=== PATIENT | female | born 1970 | race Caucasian/White ===

== ENCOUNTER 2025-09-18 10:49 | Emergency (ER) | payer MEDICARE, SELFPAY ==
[2025-09-18 10:55] VITALS: BP 161/128; PULSE 105; RESP 17; TEMP 36.6; O2SAT 95; BMI 31.1
--- OUTSIDE RECORDS SUMMARY | 2025-09-18 10:56 | XMS_ITS | Referral Summary ---
Author Organization [employer] ([place], [place], [place], [place], [place]) Address [address] [place] [address] Care Team Providers Care Supervisor Wood Room Name Role Phone Unavailable Primary Care Provider Unavailabl e Social History Tobacco Use Types Packs/Day Years Used Date Smoking Tobacco: Never Assessed Comments Unknown Sex and Gender Information Value Date Recorded Sex Assigned at Not on file Legal Sex Female 12:47 PM CDT Gender Identity Not on file Sexual Orientation Not on file Last Filed Vital Signs Vital Sign Reading Time Taken Comments Blood Pressure - - Pulse - - Temperature - - Respiratory Rate - - Oxygen Saturation - - Inhaled Oxygen Concentration - - Weight 77.6 kg (171 lb) 08/03/2025 12:09 PM CDT Height 157.5 cm (5' 2 ) 08/03/2025 12:09 PM CDT Body Mass Index 31.28 08/03/2025 12:09 PM CDT Plan of Treatment Upcoming Encounters Date Type Department Care Team (Late st Contact Info) Description 11/28/2025 10:00 AM SENIOR PRODUCT MANAGER Appointment [facility] - Non-Invasive Cardiology [address] [place] [phone] Eliceo Enriquez MD [address] [place] [phone] 11/28/2025 11:15 AM SENIOR PRODUCT MANAGER Office Visit [facility] [address] [place] [phone] Eliceo Enriquez MD [address] [place] [address] [phone]
--- OUTSIDE RECORDS SUMMARY | 2025-09-18 10:56 | XMS_ITS | Clinical Summary ---
Author Organization [facility] Address [address] [place] [address] Care Team Providers Care Transport Technician Name Role Phone Phan Palacios MD Primary Care Provider + [phone] Allergies Active Allergy Reactions Criticality Noted Date Comments Penicillins Other (See Comments) Happened when she was a child so doesn't remember reaction Medications albuterol 90 mcg/actuation Inhl inhaler Inhale 2 puffs into the lungs every 6 (six) hours as needed. 2 Active cyclobenzaprine 10 mg Oral tablet Take 2 tablets by mouth at bedtime. 2 Active FARXIGA 10 mg Oral TabIndications:typ e 2 diabetes mellitus Take 10 mg by mouth daily with breakfast. Indications: type 2 diabetes mellitus 2 Active diclofenac sodium 1 % Top Gel Apply 2 g topically 3 (three) times daily as needed (pain). 2 Active LANTUS SOLOSTAR U-100 INSULIN 100 unit/mL (3 mL) SubQ InPn Inject 2,000 Units into the skin daily with breakfast. 2 Active metFORMIN 500 mg Oral tablet Take 1 tablet by mouth 2 (two) times daily with meals. 2 Active naloxone 4 mg/actuation Nasl nasal spray 1 spray. 2 Active ondansetron 8 mg Oral disintegrating tablet Take 1 tablet by mouth as needed for Nausea. Active risperiDONE 2 mg Oral tablet Take 1.5 tablets by mouth at bedtime. 2 Active gabapentin 600 mg Oral tablet Take 1 tablet by mouth 3 (three) times daily. 2 Active HYDROcodone-acetam inophen 7.5-325 mg Oral per tablet Take 1 tablet by mouth 3 (three) times daily. 2 Active dextroamphetamine- amphetamine 20 mg Oral 24 hr capsule Take 1 capsule by mouth every morning at 0600. Active eszopiclone 3 mg Oral Tab Take 1 tablet by mouth at bedtime. 4 Active doxycycline 100 mg Oral capsule Take 1 capsule by mouth 2 (two) times daily. Active nitrofurantoin, macrocrystal-monoh ydrate, 100 mg Oral capsule Take 1 capsule by mouth 2 (two) times daily before breakfast/kieran ch. 4 Active celecoxib 200 mg Oral capsule Take 1 capsule by mouth daily. 4 Active buPROPion 150 mg Oral 24 hr tablet Take 1 tablet by mouth daily. 4 Active Active Problems Patient Care Coordination No te Formatting of this note migh t be different from the original. AED HX KEPPRA, KLONOPIN, GABAPENTIN Problem Noted Date Diagnosed Date COPD with acute exacerbation 05/12/2019 Acute respiratory failure with hypoxia 9 Seizure disorder 10/09/2018 Resolved Problems Problem Noted Date Diagnosed Date Resolved Date Sepsis, due to unspecified o rganism, unspecified whether acute organ dysfunction present 05/28/2022 05/29/2022 Family History Medical History Relation Name Comments Heart disease Father Heart disease Mother Relation Name Status Comments Father Alive Mother Social History Tobacco Use Types Packs/Day Years Used Date Smoking Tobacco: Every Day Cigarettes 1 40 Smokeless Tobacco: Never Tobacco Cessation:Ready to Q uit: Not Asked; Counseling Given: Not Answered Alcohol Use Standard Drinks/Week Comments No 0 (1 standard drink = 0.6 oz pur e alcohol) Comments No Sex and Gender Information Value Date Recorded Sex Assigned at Female 11/25/2023 8:13 AM AIR COMPRESSOR OPERATOR Legal Sex Female 10:31 PM AIR COMPRESSOR OPERATOR Gender Identity Female 11/25/2023 8:13 AM AIR COMPRESSOR OPERATOR Sexual Orientation Straight 11/25/2023 8: 13 AM AIR COMPRESSOR OPERATOR Last Filed Vital Signs Vital Sign Reading Time Taken Comments Blood Pressure 139/84 11/28/2023 12:55 PM AIR COMPRESSOR OPERATOR Pulse 84 11/28/2023 12:55 PM AIR COMPRESSOR OPERATOR Temperature 36.1 C (96.9 F) 11/28/2023 12:55 PM AIR COMPRESSOR OPERATOR Respiratory Rate 17 11/28/2023 12:55 PM AIR COMPRESSOR OPERATOR Oxygen Saturation 94% 11/28/2023 12:55 PM AIR COMPRESSOR OPERATOR Inhaled Oxygen Concentration - - Weight 76.2 kg (168 lb) 11/25/2023 8:41 AM AIR COMPRESSOR OPERATOR Height 157.5 cm (5' 2 ) 11/25/2023 8:41 AM AIR COMPRESSOR OPERATOR Body Mass Index 30.73 11/25/2023 8:41 AM AIR COMPRESSOR OPERATOR Plan of Treatment Upcoming Encounters Date Type Department Care Team (Late st Contact Info) Description 10/11/2025 11:30 AM AIR COMPRESSOR OPERATOR Appointment [facility] [address], [address] [place], [place] [id number] Cassy Martinez MD [address] [place], [place] [id number] [email or web address] Maintenance Due Date Last Done Comments CT Colonography 1969 Colon Cancer Screening 1969 Colonoscopy 1969 Diabetic Eye Exam 1969 Diabetic Foot Exam 1969 FIT 1969 Fecal DNA Test 1969 Fecal Occult Blood Test 1969 HIV Screening 1969 HPV/Cotest 1969 Lipid Screening 1969 Lung Cancer Screening 1969 Sigmoidoscopy 1969 Hepatitis B Vaccines (1 of 3 - 19+ 3-dose series) 1988 Pneumococcal Vaccine 50+ yrs (1 of 2 - PCV) 1988 Cervical Cancer Screening 1990 Pap Smear 1990 Mammogram 2009 Medicare Wellness Initial (G0438) 09/05/2017 Hemoglobin A1C 04/21/2020 10/22/2019, 10/06, 05/13/2019 DTaP,Tdap,and Td Vaccines (2 - Td or Tdap) 06/05/2023 05/08/2023 Shingles Vaccine (2 of 2) 07/03/2023 05/08/2023 Depression Screening 10/06/2024 Diabetes: Urine Protein Screening 10/06/2024 10/27/2019 Glomerular Filtration Rate (GFR) 10/06/2024 03/09/2024, 07/21/2022, 05/29/2022, Additional history exists Tobacco Cessation Intervention 11/04/2024 11/04/2023 COVID-19 Vaccine ( season) 2025 Influenza Vaccine (#1) 2025 4, 08/20/2006, 09/02/2005 Tobacco Use Screening 10/21/2025 10/21/2024 Hepatitis C Screening Completed 07/27/2021 HIB Vaccines Aged Out No longer eligi ble based on patient's age to complete this topic HPV Vaccines Aged Out No longer eligi ble based on patient's age to complete this topic Hepatitis A Vaccines Aged Out No long er eligible based on patient's age to complete this topic Meningococcal ACWY Vaccine Aged Out N o longer eligible based on patient's age to complete this topic RSV Vaccine (under 20 mo) Aged Out No longer eligible based on patient's age to complete this topic Procedures Procedure Name Priority Date/Time Associated Diagnosis Comments COMPREHENSIVE METABOLIC PANEL Routine 03/09/2024 9:40 AM CDT Polycythemia, secondary HEPATITIS PANEL ACUTE Routine 07/27/2021 9:52 AM CDT Abnormal results of liver function studies Wheezing HEMOGLOBIN A1C Routine 05/13/2019 10:15 AM CDT from Last 3 Months or Most Recently Relevant to Health Maintenance Results * (ABNORMAL) Comprehensive metabolic panel (03/09/2024 9:40 AM CDT) [facility] Signature Glucose 107(H) 70 - 105 mg/dL 03/09/2024 10:04 AM CDT [facility] BUN 19(H) 7 - 18 mg/dL 03/09/2024 10:04 AM CDT [facility] Creatinine, Blood 1.17(H) 0.57 - 1.11 mg/dL 03/09/2024 10:04 AM [facility] Sodium 138 136 - 145 mEq/L 03/09/2024 10:04 AM [facility] Potassium 4.1 3.5 - 5.1 mEq/L 03/09/2024 10:04 AM [facility] Chloride 103 98 - 107 mEq/L 03/09/2024 10:04 AM [facility] Carbon Dioxide 23.9 22.0 - 29.0 mEq/L 03/09/2024 10:04 AM [facility] Calcium 9.6 8.4 - 10.2 mg/dL 03/09/2024 10:04 AM [facility] Total Protein 7.4 6.4 - 8.3 g/dL 03/09/2024 10:04 AM [facility] Albumin 4.3 3.5 - 5.2 g/dL 03/09/2024 10:04 AM [facility] AST 16 5 - 34 U/L 03/09/2024 10:04 AM [facility] ALT 19 0 - 55 U/L 03/09/2024 10:04 AM [facility] Alkaline Phosphatase 101 40 - 150 IU/L 03/09/2024 10:04 AM [facility] Bilirubin, Total 0.3 0.2 - 1.2 mg/dL 03/09/2024 10:04 AM [facility] Estimated GFR 56(L) >60 mL/min/1. 73m2 03/09/2024 10:04 AM [facility] Comment: Calculation based on the Chronic Kidney Disease Epidemiology Collaboration (CKD-EPI)equation. The National Kidney Foundation recommends reporting eGFR(GFRC) values above 60 ml/min as >60. An eGFR(GFRC) of >60 ml/min is considered normal or near normal kidney function. Estimated GFR (eGFR or GFRC) values from 61 ml/min to 120 ml/min will also be reported. Anion Gap 11.1 8 - 12 mEq/L 03/09/2024 10:04 AM [facility] Blood LEFT VOCAL CORD STRUCTURE / Unknown Venipuncture / Unknown 03/09/2024 9:40 AM CDT 03/09/2024 9:45 AM CDT Jimmy Ingram MD LAB BLOOD ORDERABLES Final Result Performing Organization Address [facility] Co de Phone Number [facility] [address] [place] [address] * Hepatitis panel (07/27/2021 9:52 AM CDT) Pathologist [facility] Hepatitis B Surface Ag 0.20 0.0 - 0.99 [facility] Interp B Estrella Ag Negative [facility] Hep A IgM 0.11 0.0 - 0.79 [facility] Hepatitis C Ab 0.11 0.0 - 0.79 [facility] Hep C Negative [facility] Hepatitis B Core IgM 0.09 0.0 - 0.79 [facility] HepB Core IgM Negative [facility] Blood 07/27/2021 9:52 AM CDT 07/27/2021 9:55 AM CDT Phan Palacios MD LAB BLOOD ORDERABLES Final R esult Performing Organization Address [facility] de Phone Number [facility] [address] [place] [address], [place] * (ABNORMAL) Hemoglobin A1c (05/13/2019 10:15 AM CDT) Pathologist [facility] Hemoglobin A1C 9.5(H) 4.1 - 5.6 % [facility] Comment: Blood transfusions may impact the HbA1c concentration in the patient sample. NOTE This methodology does not differentiate minor hemoglobin variants that may artificially elevate the HbA1C level in some circumstances. If the HbA1C levels are inconsistent with clinical evidence, additional hemoglobin testing may be needed to confirm the results. PLEASE NOTE NEW REFERENCE RANGE ---- INTERPRETIVE INFORMATION ---- According to the [place] [employer], hemoglobin A1c values of 5.7-6.4 percent indicate an increased risk for developing diabetes mellitus. Hemoglobin A1c values greater than or equal to 6.5 percent are diagnostic of diabetes. The diagnosis of diabetes should be confirmed by repeating the Hb A1c test. Reference: Diabetes Care. Vol. 35. Supplement 1 S64-S71. Oct 2011 Glucose Estimated Average 226 mg/dL [facility] [place] Comment: NOTE The estimated average glucose is calculated using the ADAG (A1c Derived Average Glucose Study) equation: eAG=28.1pV1c-48.7. The relationship between A1c and the average blood glucose levels is shown below. A1c% eAG mg/dl 6 126 6.5 140 7 154 7.5 169 8 183 8.5 197 9 212 9.5 226 10 240 Ref: Diabetes Care, volume 31, number 8, May 2008 Blood specimen (specimen) 05/13/2019 10:15 AM CDT 05/13/2019 10:21 AM CDT us Tyler Davis MD LAB BLOOD ORDERABLES Final Resul t [facility] [address] [place] [address], [facility] from Last 3 Months or Most Recently Relevant to Health Maintenance Insurance [employer] Advance Directives * Full Code (Latest Code Status on File) Date Activated Date Inactivated Comments 05/12/2019 6:18 PM 10/21/2019 5:23 PM Healthcare Agents on File Name Relationship Healthcare Agent Relationship Communication Power Lexx Son Yes - Makes dec isions when patient is unable to Radha Woodward Other Yes - Makes deci sions when patient is unable to Care Teams Transport Technician Relationship Specialty Start Date End Date Phan Palacios MD PCP - General Internal Medicine 08/07/18
--- OUTSIDE RECORDS SUMMARY | 2025-09-18 10:56 | XMS_ITS | Clinical Summary ---
Author Organization [employer] ([place], [place], [place], [place], [place]) Address [address] [place] [id number] Care Team Providers Care Envelope Machine Operator Name Role Phone Unavailable Primary Care Provider [...] st Contact Info) Description 11/28/2025 10:00 AM BOILING OFF WINDER Appointment [facility] - Non-Invasive Cardiology [address] [place] [address] [phone] Eliceo Enriquez MD [address] [place] [phone] 11/28/2025 11:15 AM BOILING OFF WINDER Office Visit [facility] [address] [place] [address] [phone] Eliceo Enriquez MD [address] [place] [phone] Health Maintenance Due Date Last Done Comments CT Colonography 1969 Colonoscopy 1969 Colorectal Cancer Screening 1969 FOBT/FIT 1969 Fit-DNA (Cologuard) 1969 Sigmoidoscopy 1969 Depression Screening (12+) 1981 Tobacco Cessation Counseling and Screening (12+) 04/13 HIV Screening 1984 Hepatitis C Screening 1987 DTAP/TDAP/TD VACCINES (1 - Tdap) 1988 Pap Smear 1990 Breast Cancer Screening 2009 Lipid Panel 2014 Pneumococcal 50+ years (1 of 1 - PCV) 2019 Shingles Vaccine (Zoster) (1 of 2) 2019 COVID-19 VACCINE (1 - season) 2025 Influenza Vaccine (#1) 2025
--- NOTE | 2025-09-18 11:22 | ED_ITS ---
HPI - Skin/Abscess/Foreign Bdy General: Chief complaint: Skin/Abscess/Foreign Body Stated complaint: blisters on L foot Time Seen by Provider: 09/18/25 10:53 Source: patient Mode of arrival: ambulatory Limitations: no limitations History of Present Illness: Patient is a 55-year-old female presents emergency department complaining of blisters to left foot. She is diabetic states that she has a molder wax ball in [place] but currently is staying here in [place] for the month for family reasons. States that in the past she has had these blisters lanced with her foot doctor, she can feel a blister coming on but has not reported any redness or other concerning signs of a spreading infection. Just reports pain, she wears a boot at all times. No fevers or nausea/vomiting. She notes that her foot is throbbing and she is concerned that they are infected she called her doctor was told to come to the ER for evaluation. Vitals are stable at this time. She chronically takes Burns for pain. MD complaint: other (Blisters left foot) Severity: similar to previous episodes Context: other (Diabetic) Associated symptoms: Deny chills, fever(s), nausea or vomiting Related Data Previous Rx's ?Medication ?Instructions ?Recorded cephalexin 500 mg capsule 500 mg PO Q6H 5 days #20 cap s 09/18/25 sulfamethoxazole 800 1 tab PO BID 7 days #14 tabs 09/18/25 mg-trimethoprim 160 mg tablet (Bactrim DS) Allergies Allergy/AdvReac Type Severity Reaction Status Date / Time Penicillins Allergy ALGY-Hives Verified 09/18/25 10:58 Review of Systems General: Reports: 10 or more systems reviewed and unremarkable except in HPI and below Const: Denies: fever(s) or chills Card: Denies: chest pain Resp: Denies: dyspnea GI: Denies: abdominal pain, nausea, vomiting or diarrhea Musc: Denies: extremity pain or joint pain Skin/Breast: Reports: skin pain, skin tenderness, non-healing lesions and lesions; Denies: rash Neuro: Denies: headache(s) Physical Exam Const: COMMON NORMALS: no acute distress, average body habitus, patient oriented x3, no limitations, healthy appearing, alert and well nourished HENMT: COMMON NORMALS: normocephalic and atraumatic HEAD & SCALP: normocephalic and atraumatic Neck/C-Spine: COMMON NORMALS: full ROM, no lymphadenopathy, supple and no meningeal signs Extremity: COMMON NORMALS: full ROM and capillary refill normal Neuro: COMMON NORMALS: patient oriented x3 SENSORIUM/ORIENTATION: Yes alert MENINGEAL SIGNS: Yes no meningeal signs Skin: NARRATIVE SKIN EXAM: 3 separate callused areas to the bottom of the left foot. There is no significant signs of cellulitis or red streaking. No warmth to the foot. Possible area of the traumatic blister, but appears very early stage and there is no sign of any abscess formation. Area mildly tender to palpation. Course Vital Signs: Vital signs: Vital Signs Temperature 97.9 F 09/18/25 10:55 Pulse Rate 105 H 09/18/25 10:55 Respiratory Rate 17 09/18/25 10:55 Blood Pressure 161/128 09/18/25 10:55 Pulse Oximetry 95 09/18/25 10:55 Oxygen Delivery Me thod Room Air 09/18/25 10:55 MDM - Skin/Abscess/Foreign Bdy Medicial Decision Making Patient presented for evaluation of calluses and possible blister left foot. She has a molder wax ball in [place] she is diabetic states that she has blisters lanced there and was told come the ED by provider today. Also states that she typically is given antibiotics when she has symptoms like this. On examination does not appear that there would be any lesion that would benefit from any lorri or I&D, as I do not want to expose to any potential risk. She has boot/soft bottom shoe that she is wearing for protective purposes and has no demonstration of systematic infection. At her request as she states she is treated with antibiotics with the symptoms we will do dual therapy Bactrim and Keflex, she is discharged home will continue her Burns for pain. No radiology studies performed this visit Discharge Plan Discharge Patient Disposition: Home Clinical Impression: Blister of foot, left Condition: Stable Prescriptions: New sulfamethoxazole-trimethoprim [Bactrim DS] 800-160 mg tablet 1 tab PO BID 7 Days Qty: 14 0RF cephalexin 500 mg capsule 500 mg PO Q6H 5 Days Qty: 20 0RF Discharge Orders: Discharge ED (Routine); Ordered 09/18/25 Ordered By: Peter Tovar Patient Instructions: Patient Portal & Cindy Instructions Activity Restrictions/Additional Instructions: Diabetic Foot Blister Instructions What You Need to Know About Your Foot Blisters You have blisters on the bottom of your left foot. These blisters appear to be caused by trauma (injury or rubbing) and do not show signs of infection at this time. Because you have diabetes, it is very important to take special care of these blisters to help them heal and prevent infection. Important: About the Antibiotics You have been prescribed two antibiotics: Bactrim (trimethoprim- sulfamethoxazole) and Keflex (cephalexin). However, current medical guidelines do not recommend using antibiotics for foot wounds that are not infected. Taking antibiotics when they are not needed can cause side effects and may make antibiotics less effective if you develop an infection in the future. Do not start taking these antibiotics unless you develop signs of infection (see below). Keep them at home and only begin taking them if instructed by your doctor or if you notice signs of infection. How to Care for Your Blisters - Keep weight off your left foot as much as possible. Use crutches, a walker, or wheelchair if available - Do not pop or lorri the blisters yourself, as this can introduce infection - Keep the blisters clean and dry: - Wash your hands before touching the area - Gently clean around the blisters with mild soap and water daily - Pat dry with a clean towel - Cover the blisters with a clean, dry bandage to protect them from further injury - Change the bandage daily or whenever it becomes wet or dirty - Check your blood sugar regularly and keep it as close to your target range as possible, as high blood sugar can slow healing Warning Signs of Infection - Call Your Doctor or Go to the Emergency Room If You Notice: - Increased redness spreading around the blister (more than 1 inch from the edge) - Warmth or heat in the area - Swelling that gets worse - Pus or cloudy fluid draining from the blister - Foul odor from the wound - Fever (temperature over 100.4?F or 38?C) - Chills or feeling generally unwell - Red streaks going up your leg from the blister - The blister area becomes more painful instead of better If you develop any of these signs of infection, start taking both antibiotics as prescribed and contact your doctor immediately. When to Follow Up - Try to see your molder wax ball as soon as possible, even before your October appointment if you can get an earlier slot - If the blisters are not improving within 3-5 days, contact your primary care doctor - If you cannot reach your doctor and notice signs of infection, go to an urgent care center or emergency room Additional Tips - Wear properly fitting shoes that do not rub or put pressure on the blisters - Inspect your feet daily for any new blisters, cuts, or changes - Keep your feet clean and dry at all times - Never walk barefoot, even at home Questions? If you have any questions or concerns about your blisters, do not hesitate to call your doctor's office. Print Language: Serbian Coding Level of Care Code ED Acetylene Operator for Teetee Navarrete
[2025-09-18 11:53] VITALS: RESP 16
[2025-09-18] MEDS: HYDROmorphone tab 2 MG TABLET PO (11:53)
== END 2025-09-18 11:59 | disposition home or self-care (01) ==
PROVIDERS: Emergency Provider Physician Assistant
DX: S90.822A Blister (nonthermal), left foot, initial encounter (principal); X58.XXXA Exposure to other specified factors, initial encounter
CPT/HCPCS: 99284; J9999

== ENCOUNTER 2025-09-21 13:56 | Outpatient (CLI) | payer MEDICARE, SELFPAY | END 2025-09-21 13:57 | disposition home or self-care (01) | LOC: SPT 13:57 | PROVIDERS: Visit Provider Podiatrist Foot & Ankle Surgery | DX: Z46.89 Encounter for fitting and adjustment of other specified devices (principal); E11.42 Type 2 diabetes mellitus with diabetic polyneuropathy; S90.822D Blister (nonthermal), left foot, subsequent encounter; X58.XXXD Exposure to other specified factors, subsequent encounter | CPT/HCPCS: L4361 ==